=== PATIENT | female | born 1975 | race Caucasian/White ===

== ENCOUNTER 2017-03-05 17:39 | Observation (INO) | payer OTHER ==
--- NOTE | 2017-03-05 17:55 | PDOC ---
History of Present Illness - History of Present Illness Initial Comments: 41 year old healthy female with history of 2 NSVDs and a cholecystectomy presenting with 5 hours of diffuse achy abdominal pain and some BRBPR. She states that it started suddenly after lunch and describes it as a 4/10-8/10 jules -umbilical pain that is causing her some nausea and loss of appetite. She states this pain started after lunch and she is afraid to eat food because of potential exacerbation of her symptoms. She is on OCP (LUPIN- estrogen containing). Denies vomiting, chest pain, shortness of breath, palpitations, cough, or blood from any orifice. 03/05/17 21:32 <Jacinto Tirado - Last Filed: 03/06/17 00:46> <Vj Interiano - Last Filed: 03/06/17 17:58> - General Chief Complaint: Rectal Bleed Stated Complaint: PAIN Time Seen by Provider: 03/05/17 17:55 Past History - Suicide/Smoking/Psychosocial Hx Smoking History: Never smoked Have you smoked in the past 12 months: No Information on smoking cessation initiated: No Hx Alcohol Use: No Drug/Substance Use Hx: No Substance Use Type: None <Jacinto Tirado - Last Filed: 03/06/17 00:46> <Vj Interiano - Last Filed: 03/06/17 17:58> - Past Medical History Allergies/Adverse Reactions: Allergies Allergy/AdvReac Type Severity Reaction Status Date / Time No Known Allergies Allergy Verified 03/05/17 17:42 Home Medications: Ambulatory Orders Desogestrel-Ethinyl Estradiol [Enskyce] 1 each PO DAILY 03/05/17 Review of Systems - Review of Systems Constitutional: No: Chills, Fever HEENTM: No: Blurred Vision Respiratory: No: Cough, Shortness of Breath, Wheezing, Productive cough Cardiac (ROS): No: Chest Pain, Lightheadedness, Palpitations, Syncope, Chest Tightness ABD/GI: Yes: Nausea. No: Diarrhea, Vomiting : No: Burning, Dysuria, Hematuria Integumentary: No: Change in Color Neurological: No: Headache, Numbness Hematologic/Lymphatic: No: Blood Clots, Easy Bleeding <Jacinto Tirado - Last Filed: 03/06/17 00:46> *Physical Exam - Vital Signs Last Vital Signs Temp Pulse Resp BP Pulse Ox 98.1 F 115 H 20 130/90 100 03/05/17 17:42 03/05/17 17:42 03/05/17 17:42 03/05/17 17:42 03/05/17 17:42 - Physical Exam General Appearance: Yes: Nourished, Appropriately Dressed. No: Apparent Distress HEENT: positive: EOMI, RUI, Normal ENT Inspection, Normal Voice Neck: positive: Trachea midline, Normal Thyroid, Supple. negative: Tender, Rigid Respiratory/Chest: positive: Lungs Clear, Normal Breath Sounds. negative: Chest Tender, Respiratory Distress Cardiovascular: positive: Regular Rhythm, Regular Rate Gastrointestinal/Abdominal: positive: Normal Bowel Sounds, Tender (Diffuse abdominal tenderness most prominent in the left lower quadrant. However, as obivous in the attending note, this pain is dynamic.), Flat, Soft Musculoskeletal: positive: Normal Inspection. negative: CVA Tenderness Extremity: positive: Normal Capillary Refill, Normal Inspection, Normal Range of Motion. negative: Tender Integumentary: positive: Normal Color, Dry, Warm Neurologic: positive: Fully Oriented, Alert, Normal Mood/Affect, Normal Response , Motor Strength 5/5 <Jacinto Tirado - Last Filed: 03/06/17 00:46> - Vital Signs Last Vital Signs Temp Pulse Resp BP Pulse Ox 98.4 F 100 H 18 133/78 98 03/06/17 15:23 03/06/17 15:23 03/06/17 13:12 03/06/17 15:23 03/06/17 15:23 <Vj Interiano - Last Filed: 03/06/17 17:58> ED Treatment Course - LABORATORY CBC & Chemistry Diagram: 03/05/17 18:20 03/05/17 18:20 <Jacinto Tirado - Last Filed: 03/06/17 00:46> - LABORATORY CBC & Chemistry Diagram: 03/06/17 02:00 03/06/17 02:00 - ADDITIONAL ORDERS Additional order review: 03/06/17 03/05/17 02:00 18:20 RBC 4.17 4.62 MCV 84.6 83.6 MCHC 33.4 33.6 RDW 13.1 13.1 MPV 7.7 8.0 Neutrophils % 85.9 H D 69.5 Lymphocytes % 10.3 D 25.3 Monocytes % 3.5 L 3.4 L Eosinophils % 0.0 D 1.0 Basophils % 0.3 0.8 - Medications Given in the ED: ED Medications Discontinued Medications Generic Name Dose Route Start Last Admin Trade Name Wes PRN Reason Stop Dose Admin Al Hydroxide/Mg Hydroxide 30 ml 03/05/17 21:24 03/05/17 21:45 Mylanta Oral Suspension - PO 03/05/17 21:25 30 ml ONCE ONE Administration Hydromorphone HCl 1 mg 03/05/17 18:58 03/05/17 18:59 Dilaudid Injection - IVPUSH 03/05/17 18:59 1 mg NOW ONE Administration Famotidine/Sodium Chloride 50 mls @ 100 mls/hr 03/05/17 21:41 03/05/17 21:54 Pepcid 20 Mg Premixed Ivpb - IVPB 03/05/17 22:10 100 mls/hr ONCE ONE Administration Sodium Chloride 1,000 mls @ 75 mls/hr 03/06/17 03:45 03/06/17 04:00 Normal Saline - IV 03/06/17 17:04 75 mls/hr ASDIR KIAN Administration Lidocaine HCl 20 ml 03/05/17 21:24 03/05/17 21:45 Xylocaine 2% Viscous Oral - MM 03/05/17 21:25 20 ml ONCE ONE Administration Morphine Sulfate 4 mg 03/05/17 18:24 03/05/17 18:49 Morphine Injection - IVPUSH 03/05/17 18:25 4 mg ONCE ONE Administration Sodium Chloride 1,000 ml 03/05/17 18:59 03/05/17 18:59 Normal Saline - IV 03/05/17 19:00 1,000 ml NOW ONE Administration Sodium Chloride 1,000 ml 03/05/17 22:25 03/05/17 22:33 Normal Saline - IV 03/05/17 22:26 1,000 ml ONCE ONE Administration <Vj Interiano - Last Filed: 03/06/17 17:58> Medical Decision Making - Medical Decision Making 41 year old female with abdominal pain of unclear location. History of cholecystectomy. Rectal exam significant for possible internal hemorrhoid, no BRBPR and fecal occult blood negative. Abdominal CT negative for stones with normal appendix but note of a 11 x 7 x 8 CM Dermoid cyst in the pelvis. Spoke to OBGYN attending front desk team member and discussed the case with her. She indicated that we should rule out torsion and can have her follow up in the records management assistant clinic for elective cyst removal. However, she was still Tachycardic despite two liters of NS so concerned for PE. Discussed patients with front desk team member medical residents and they will observe her and scan her for PE tomorrow. 03/06/17 00:50 <Jacinto Tirado - Last Filed: 03/06/17 00:46> *DC/Admit/Observation/Transfer - Discharge Dispostion Admit: Yes <Jacinto Tirado - Last Filed: 03/06/17 00:46> <Vj Interiano - Last Filed: 03/06/17 17:58> Diagnosis at time of Disposition: Abdominal pain Qualifiers: Abdominal location: generalized Qualified Code(s): R10.84 - Generalized abdominal pain - Discharge Dispostion Condition at time of disposition: Stable - Referrals - Patient Instructions
[2017-03-05] MEDS ORDERED: morphine CARPU-JECT 2 MG/1 ML DISP.SYRIN IVPUSH ONE (18:24)
[2017-03-05] MEDS ORDERED: morphine CARPU-JECT 8 MG/1 ML DISP.SYRIN ONE (18:28)
[2017-03-05 18:32] LABS: BASOPHIL 0.8 % (0-2.0); MCHC 33.6 g/dl (32.0-36.0); MEAN CELL VOLUME 83.6 fl (80-96); NEUTROPHILS 69.5 % (42.8-82.8); PLATELET COUNT 290 K/MM3 (134-434); RDW 13.1 % (11.6-15.6); WHITE BLOOD COUNT 14.3 K/mm3 (4.0-10.0)
[2017-03-05 18:43] LABS: STOOL FOR OCCULT BLOOD NEGATIVE (NEGATIVE)
[2017-03-05 18:45] LABS: INR 0.98 (0.82-1.09); PROTHROMBIN TIME (PATIENT) 11.1 SEC (9.98-11.88)
[2017-03-05] MEDS ORDERED: HYDROmorphone HCL CARPU-JECT 1 MG/1 ML DISP.SYRIN ONE (18:54)
[2017-03-05] MEDS ORDERED: HYDROmorphone HCL CARPU-JECT 1 MG/1 ML DISP.SYRIN IVPUSH ONE (18:58)
[2017-03-05 18:59] LABS: ALBUMIN 3.2 g/dl (3.4-5.0); ALK PHOS 97 U/L (45-117); ANION GAP 7 (8-16); BILIRUBIN,TOTAL 0.1 mg/dL (0.2-1.0); CALCIUM 8.7 mg/dL (8.5-10.1); CO2 25 mmol/L (21-32); CREATININE 0.7 mg/dL (0.55-1.02); GLUCOSE,RANDOM 140 mg/dL (74-106); SGOT/AST 19 U/L (15-37); SGPT/ALT 30 U/L (12-78); TOT PROT 7.6 g/dl (6.4-8.2)
[2017-03-05] MEDS ORDERED: SODIUM CHLORIDE 0.9% 1000 ML INFUS.BAG IV ONE (18:59)
--- NOTE | 2017-03-05 20:28 | PDOC ---
Attending Attestation - Resident Resident Name: Jacinto Tirado - ED Attending Attestation I have performed the following: I have examined & evaluated the patient, The case was reviewed & discussed with the resident, I agree w/resident's findings & plan, Exceptions are as noted - HPI HPI: 03/05/17 20:25 41 Years old no significant past medical history presents to the emergency department with right-sided abdominal discomfort starting this afternoon. Pain is moderate to severe persistent constant gradually worsening over the course of day. Also of note patient noticed a small amount of bright red blood when wiping - Physicial Exam PE: 03/05/17 20:26 Vitals: Triage Vital signs reviewed General Appearance: Moderate acute distress, well nourished well developed, Chest Wall: Nontender Cardiac: Regular rate and rhythym, no murmurs, no rubs, no gallops, Lungs: Clear to auscultation bilateral, good air movement bilaterally, Abdomen: Soft, non distended, normal bowel sounds, right-sided abdominal tenderness to palpation both in the right upper quadrant or right lower quadrant Extremities: Full range of motion to all extremities, no cyanosis, clubbing, or edema Skin: Warm and dry, no rashes or lesions, no rash, no petechiae - Medical Decision Making 03/05/17 20:26 Right-sided abdominal discomfort differential diagnosis includes biliary disease versus appendectomy. CAT scan ordered patient may also require ultrasound Dr. Cueto to follow-up results.
[2017-03-05] MEDS ORDERED: MAG HYDROX/AL HYDROX/SIMETH 30 ML UNIT-DOSE CUP PO ONE (21:24)
[2017-03-05] MEDS ORDERED: LIDOCAINE VISCOUS 2% ORAL/TOP 20 ML UNIT-DOSE CUP MM ONE (21:24)
[2017-03-05] MEDS ORDERED: LIDOCAINE VISCOUS 2% ORAL/TOP 20 ML UNIT-DOSE CUP ONE (21:27)
[2017-03-05] MEDS ORDERED: FAMOTIDINE 20 MG/50 ML IVPB 50 ML IVPB ONE ×2 (21:41→21:47)
[2017-03-05 22:16] LABS: URINE APPEARANCE SLCLOUDY; URINE BILIRUBIN NEGATIVE (NEGATIVE); URINE BLOOD 1+ (NEGATIVE); URINE COLOR LTYELLOW; URINE GLUCOSE (UA) NEGATIVE (NEGATIVE); URINE KETONE TRACE (NEGATIVE); URINE NITRITE NEGATIVE (NEGATIVE); URINE PROTEIN NEGATIVE (NEGATIVE); URINE UROBILINOGEN NEGATIVE mg/dL (0.2-1.0)
[2017-03-05 22:18] LABS: URINE MUCUS RARE; URINE RBC 2 /hpf (0-3); URINE WBC 1 /hpf (3-5)
[2017-03-05] MEDS ORDERED: SODIUM CHLORIDE 0.9% 500 ML INFUS.BAG IV ONE (22:25)
[2017-03-05 23:32] LABS: URINE LEUK ESTERASE Negative (NEGATIVE)
--- NOTE | 2017-03-06 01:07 | HP ---
CHIEF COMPLAINT: Abdominal Pain HISTORY OF PRESENT ILLNESS: Pt is a 41yo F with a PMHx of PCOS, s/p CCY, who presented to ER of sudden onset epigastric discomfort. States she noticed it this afternoon after eating food, it started off mild and slowly progressed. It is characterized as dull, achey, sometimes diffuse, w/ associated fullness. Denies nausea, vomitting, diarrhea, constipation, heartburn. Denies CP, SOB. Also noticed that today she had smears of bright red blood per rectum, was not straining, no assoc pain. Denies anal pain, itchiness. Denies fevers, chills. Given Morphine, Dilaudid, Tylenol, viscous lidocaine in ER, thus currently pain is more resolved. ER course was notable for: (1) VSS, EKG shows sinus tach w/ Q3, T3 (2) Abd/pelvis CT - unable to get [facility] read, stomach looks enlarged w/ food , dermoid cyst (3) Pelvic U/S - R adnexal complex mass (6.5cm) + L adnexal cyst (1.3cm) PAST MEDICAL HISTORY: PCOS (taking Estradiol) PAST SURGICAL HISTORY: Laparoscopic CCY +14 years ago Social History: Lives w/ , from [place] Smoking: Denies Alcohol: Denies Drugs: Denies Allergies: No Known Allergies Allergy (Verified 03/05/17 17:42) HOME MEDICATIONS: Home Medications Medication Instructions Recorded Desogestrel-Ethinyl Estradiol 1 each PO DAILY 03/05/17 [Enskyce] REVIEW OF SYSTEMS CONSTITUTIONAL: Absent: fever, chills, diaphoresis, generalized weakness, malaise, loss of appetite, weight change HEENT: Absent: rhinorrhea, nasal congestion, throat pain, throat swelling, difficulty swallowing, mouth swelling, ear pain, eye pain, visual changes CARDIOVASCULAR: Absent: chest pain, syncope, palpitations, irregular heart rate, lightheadedness , peripheral edema RESPIRATORY: Absent: cough, shortness of breath, dyspnea with exertion, orthopnea, wheezing, stridor, hemoptysis GASTROINTESTINAL: Absent: abdominal distension, nausea, vomiting, diarrhea, constipation, melena, hematochezia Present: abdominal pain GENITOURINARY: Absent: dysuria, frequency, urgency, hesitancy, hematuria, flank pain, genital pain MUSCULOSKELETAL: Absent: myalgia, arthralgia, joint swelling, back pain, neck pain SKIN: Absent: rash, itching, pallor HEMATOLOGIC/IMMUNOLOGIC: Absent: easy bleeding, easy bruising, lymphadenopathy, frequent infections ENDOCRINE: Absent: unexplained weight gain, unexplained weight loss, heat intolerance, cold intolerance NEUROLOGIC: Absent: headache, focal weakness or paresthesias, dizziness, unsteady gait, seizure, mental status changes, bladder or bowel incontinence PSYCHIATRIC: Absent: anxiety, depression, suicidal or homicidal ideation, hallucinations. PHYSICAL EXAMINATION Vital Signs Temperature 98 F 03/05/17 22:23 Pulse Rate 127 H 03/05/17 23:58 Respiratory Rate 16 03/05/17 23:58 Blood Pressure 151/70 03/05/17 23:58 O2 Sat by Pulse Oximetry (%) 98 03/05/17 23:58 GEN: AAOx3, NAD, Lying comfortably, spaeking in full sentences HEENT: PERRLA, EOMi, no cervical LAD CV: S1, S2, tachycardic rate, reg rhythm LUNG: CTABL ABD: obese, soft, mild TTP in epigastrium and suprapubic area MSK: No edema, no erythema RECTAL: SMall external hemorrhoids, nonbleeding NEURO: No sensation or MSK deficits Laboratory Last Values WBC 14.3 K/mm3 (4.0-10.0) H 03/05/17 18:20 RBC 4.62 M/mm3 (3.60-5.2) 03/05/17 18:20 Hgb 13.0 GM/dL (10.7-15.3) 03/05/17 18:20 Hct 38.6 % (32.4-45.2) 03/05/17 18:20 MCV 83.6 fl (80-96) 03/05/17 18:20 MCH 28.0 pg (25.7-33.7) 03/05/17 18:20 MCHC 33.6 g/dl (32.0-36.0) 03/05/17 18:20 RDW 13.1 % (11.6-15.6) 03/05/17 18:20 Plt Count 290 K/MM3 (134-434) 03/05/17 18:20 MPV 8.0 fl (7.5-11.1) 03/05/17 18:20 Neutrophils % 69.5 % (42.8-82.8) 03/05/17 18:20 Lymphocytes % 25.3 % (8-40) 03/05/17 18:20 Monocytes % 3.4 % (3.8-10.2) L 03/05/17 18:20 Eosinophils % 1.0 % (0-4.5) 03/05/17 18:20 Basophils % 0.8 % (0-2.0) 03/05/17 18:20 PT with INR 11.10 SEC (9.98-11.88) 03/05/17 18:20 INR 0.98 (0.82-1.09) 03/05/17 18:20 Sodium 138 mmol/L (136-145) 03/05/17 18:20 Potassium 3.8 mmol/L (3.5-5.1) 03/05/17 18:20 Chloride 106 mmol/L (98-107) 03/05/17 18:20 Carbon Dioxide 25 mmol/L (21-32) 03/05/17 18:20 Anion Gap 7 (8-16) L 03/05/17 18:20 BUN 12 mg/dL (7-18) 03/05/17 18:20 Creatinine 0.7 mg/dL (0.55-1.02) 03/05/17 18:20 Creat Clearance w eGFR > 60 (>60) 03/05/17 18:20 Random Glucose 140 mg/dL (74-106) H 03/05/17 18:20 Calcium 8.7 mg/dL (8.5-10.1) 03/05/17 18:20 Total Bilirubin 0.1 mg/dL (0.2-1.0) L 03/05/17 18:20 AST 19 U/L (15-37) 03/05/17 18:20 ALT 30 U/L (12-78) 03/05/17 18:20 Alkaline Phosphatase 97 U/L (45-117) 03/05/17 18:20 Total Protein 7.6 g/dl (6.4-8.2) 03/05/17 18:20 Albumin 3.2 g/dl (3.4-5.0) L 03/05/17 18:20 Lipase 180 U/L (73-393) 03/05/17 18:20 Serum , Qual Negative 03/05/17 18:24 Urine Color Ltyellow 03/05/17 22:00 Urine Appearance Slcloudy 03/05/17 22:00 Urine pH 5.0 (5.0-8.0) 03/05/17 22:00 Ur Specific [place] 1.010 (1.005-1.025) 03/05/17 22:00 Urine Protein Negative (NEGATIVE) 03/05/17 22:00 Urine Glucose (UA) Negative (NEGATIVE) 03/05/17 22:00 Urine Ketones Trace (NEGATIVE) H 03/05/17 22:00 Urine Blood 1+ (NEGATIVE) H 03/05/17 22:00 Urine Nitrite Negative (NEGATIVE) 03/05/17 22:00 Urine Bilirubin Negative (NEGATIVE) 03/05/17 22:00 Urine Urobilinogen Negative mg/dL (0.2-1.0) 03/05/17 22:00 Ur Leukocyte Esterase Negative (NEGATIVE) 03/05/17 22:00 Urine RBC 2 /hpf (0-3) 03/05/17 22:00 Urine WBC 1 /hpf (3-5) 03/05/17 22:00 Ur Epithelial Cells Moderate /hpf (FEW) 03/05/17 22:00 Urine Mucus Rare 03/05/17 22:00 Stool Occult Blood Negative (NEGATIVE) 03/05/17 18:24 Blood Type A POSITIVE 03/05/17 18:20 Antibody Screen Negative 03/05/17 18:20 Active Medications Generic Name Dose Route Start Last Admin Trade Name Isaiahq PRN Reason Stop Dose Admin Acetaminophen 650 mg 03/06/17 01:02 03/06/17 02:20 Tylenol - PO 650 mg Q4H PRN Administration FEVER OR PAIN Enoxaparin Sodium 100 mg 03/06/17 10:00 Lovenox - SQ BID KIAN Metronidazole 100 mls @ 100 mls/hr 03/06/17 09:00 Flagyl 500mg Premixed Ivpb - IVPB Q6H-IV KIAN Levofloxacin 150 mls @ 150 mls/hr 03/06/17 10:00 Levaquin 750 Mg Premixed Ivpb - IVPB DAILY KIAN Sodium Chloride 1,000 mls @ 75 mls/hr 03/06/17 03:45 03/06/17 04:00 Normal Saline - IV 03/06/17 17:04 75 mls/hr ASDIR KIAN Administration Pantoprazole Sodium 40 mg 03/06/17 10:00 Protonix - PO DAILY KIAN ASSESSMENT/PLAN: Pt is a 41yo F with a PMHx of PCOS, s/p CCY, who presented to ER of gradual onset epigastric and suprapubic discomfort and fullness. # Epigastric Pain - along w/ WBC count and left shift could be intra-abdominal infection vs dyspepsia vs gastritis, less likely or pancreatitis or [place], Tylenol for pain, f/u official CT abd/pelvis read, will give Levaquin/Flagyl to cover possible infection, will give protonix to cover possible gastritis # Tachycardia - from pain vs r/o PE since pt is on estrogen w/ Q3, T3 on EKG, high-dimer, will give Lovenox 1mg/kg BID tx dose for PE in the interim, will get BLLE dopplers, unable to get CTA <24hrs after CT abd/pelvis w/ contrast. Will give gentle IVF to prevent contrast induced kidney injury # R Ovarian Dermoid Cyst - 6-7cm, from PCOS and/or estrogen pills, likely causing suprapubic discomfort, will consult OBGYN (Dr. Zhao) # External Hemorrhoids - small, nonbleeding oma, but could have lead to minimal BRBPR, monitor for now # PCOS - hold estrogen pills for now # FEN - No IVF, electrolytes WNL, regular diet # PPx - Lovenox, PT not needed, pt is ambulatory # Dispo - Admit to inpatient, getting IV abx and therapeutic anticoag d/w Dr. Andria Lewis MD - PGY1 Internal Medicine Visit type - Emergency Visit Emergency Visit: Yes ED Registration Date: 03/06/17 Care time: The patient presented to the Emergency Department on the above date and was hospitalized for further evaluation of their emergent condition. - New Patient This patient is new to me today: Yes Date on this admission: 03/06/17 - Critical Care Critical Care patient: No
[2017-03-06 02:04] LABS: BASOPHIL 0.3 % (0-2.0); MCH 28.2 pg (25.7-33.7); MCHC 33.4 g/dl (32.0-36.0); MEAN CELL VOLUME 84.6 fl (80-96); MEAN PLT VOLUME 7.7 fl (7.5-11.1); NEUTROPHILS 85.9 % (42.8-82.8); PLATELET COUNT 265 K/MM3 (134-434); RDW 13.1 % (11.6-15.6)
[2017-03-06] MEDS ORDERED: ACETAMINOPHEN 325 MG TABLET (FP) ONE (02:16)
[2017-03-06] MEDS: ACETAMINOPHEN 325 MG TABLET (FP) PO PRN (02:20)
[2017-03-06 03:00] LABS: ALBUMIN 2.9 g/dl (3.4-5.0); ALK PHOS 87 U/L (45-117); ANION GAP 9 (8-16); BILIRUBIN,TOTAL 0.3 mg/dL (0.2-1.0); CALCIUM 8.2 mg/dL (8.5-10.1); CO2 21 mmol/L (21-32); CREATININE 0.7 mg/dL (0.55-1.02); GLUCOSE,RANDOM 134 mg/dL (74-106); SGOT/AST 20 U/L (15-37); SGPT/ALT 25 U/L (12-78); TOT PROT 6.6 g/dl (6.4-8.2)
[2017-03-06] MEDS ORDERED: SODIUM CHLORIDE 1,000 ML IV SCH ×2 (03:45→19:00)
--- NOTE | 2017-03-06 03:54 | PN ---
Teaching Attending Note Name of Resident: Paul Lewis ATTENDING PHYSICIAN STATEMENT I saw and evaluated the patient. I reviewed the resident's note and discussed the case with the resident. I agree with the resident's findings and plan as documented. SUBJECTIVE: 41yo woman with PCOS diagnosed by hormone studies this past October comes in complaining of suprapubic and epigastric abdominal pain x1 day. Pain started abruptly and was not related to any particular event. Denied any trauma, fevers , chills, shortness of breath. CT of abdomen was performed and showed large pelvic dermoid cyst. There was no obvious rupture seen. Patient found to have tachycardia, q3, t3 on ekg, high Dimer. She is denied any difficulty w/ breathing. OBJECTIVE: Last Vital Signs Temp Pulse Resp BP Pulse Ox 99.1 F 120 H 16 123/78 97 03/06/17 02:20 03/06/17 02:54 03/06/17 02:54 03/06/17 02:54 03/06/17 02:54 general- nad, aaox3 heent -at, nc neck -supple cv-s1+s2+ tachycardia chest- cta b/l abdomen- mild tenderness in suprapubic and epigastric regions ext -no edema skin- no rashes noted Abnormal Lab Results 03/05/17 03/05/17 03/05/17 18:20 18:20 22:00 WBC 14.3 H Neutrophils % Monocytes % 3.4 L D-Dimer Chloride Anion Gap 7 L Random Glucose 140 H Calcium Total Bilirubin 0.1 L Albumin 3.2 L Urine Ketones Trace H Urine Blood 1+ H 03/06/17 03/06/17 03/06/17 02:00 02:00 02:00 WBC 15.0 H Neutrophils % 85.9 H D Monocytes % 3.5 L D-Dimer 924 H Chloride 108 H Anion Gap Random Glucose 134 H Calcium 8.2 L Total Bilirubin Albumin 2.9 L Urine Ketones Urine Blood ct of abdomen - large dermoid cyst ASSESSMENT AND PLAN: #abdominal pain -likely 2/2 to mass effect from large dermoid cyst with concerns of possible rupture as there is tachycardia, leukocytosis with left shift. Concern for early sepsis. Pain may also be 2/2 gastritis as it is also localized in epigastric region. -blood cultures x2 -pain control w/ morphine prn -IV fluid hydration -levofloxacin -metronidazole -OBGYN evaluation for management of dermoid cyst -PPIs empirically for possible gastritis #R/o PE - q3, t3 on ekg, tachycardia, +D dimer-, taking OCPs suggest moderate possibility of PE -admit to telemetry -start therapeutic dose of Lovenox pending CT of chest with contrast -duplex of lower extremity to r/o DVT -transthoracic echo to check for right heart strain #DVT ppx -therapeutic dose lovenox #diet -normal diet
[2017-03-06] MEDS ORDERED: HEPARIN NA (PORCINE) 5,000 UNITS/ML 1ML VIAL SQ SCH (06:00)
--- NOTE | 2017-03-06 09:05 | EKG ---
Test Reason : Blood Pressure : / mmHG Vent. Rate : 121 BPM Atrial Rate : 121 BPM P-R Int : 158 ms QRS Dur : 072 ms QT Int : 308 ms P-R-T Axes : 034 021 004 degrees QTc Int : 437 ms POOR DATA QUALITY, INTERPRETATION MAY BE ADVERSELY AFFECTED SINUS TACHYCARDIA CANNOT RULE OUT INFERIOR INFARCT , AGE UNDETERMINED ABNORMAL ECG NO PREVIOUS ECGS AVAILABLE Confirmed by JAN WINSTON, BOZENA ([id number]) on 03/06/2017 9:04:44 AM Referred By: Confirmed By:BOZENA MONTOYA MD
[2017-03-06] MEDS ORDERED: METRONIDAZOLE 500 MG PREMIXED 100 ML IVPB ONE ×2 (10:35→15:11)
[2017-03-06] MEDS ORDERED: LEVOFLOXACIN 750 MG IVPB 150 ML IVPB ONE (10:35)
[2017-03-06] MEDS: METRONIDAZOLE 500 MG PREMIXED 100 ML IVPB SCH ×3 (10:40→21:24)
[2017-03-06] MEDS: PANTOPRAZOLE 40 MG TABLET (FP) PO SCH (10:45)
[2017-03-06] MEDS: ENOXAPARIN NA (PORCINE) 100 MG/1 ML DISP.SYRIN SQ SCH ×2 (10:45→21:25)
[2017-03-06] MEDS: LEVOFLOXACIN 750 MG IVPB 150 ML IVPB SCH (12:35)
[2017-03-06 13:22] VITALS: BMI 36.7
[2017-03-06] MEDS ORDERED: morphine CARPU-JECT 8 MG/1 ML DISP.SYRIN IVPUSH PRN (15:10)
[2017-03-06] MEDS ORDERED: morphine CARPU-JECT 8 MG/1 ML DISP.SYRIN ONE (15:11)
[2017-03-06] MEDS ORDERED: SODIUM CHLORIDE 1,000 ML IV STA (17:07)
--- NOTE | 2017-03-06 17:07 | PN ---
Teaching Attending Note Name of Resident: Franck March (eval:[id number]) ATTENDING PHYSICIAN STATEMENT SUBJECTIVE: patient seen and examined. Reported infraumbilical and epigastric pain on admission, markedly improved. Infra umbilical pain has resolved, describes it as sudden onset squeezing in nature, no epigastric pain currently. Denies any dyspnea, chest pain, palpitations, dizziness or diaphoresis, no nausea, vomiting noted. OBJECTIVE: Vital Signs Period Temp Pulse Resp BP Sys/Rojas Pulse Ox Last 24 Hr 98 F-99.1 F 103-135 16-20 114-151/66-90 97-100 Intake & Output 03/03/17 03/04/17 03/05/17 03/06/17 23:59 23:59 23:59 23:59 Weight 214 lb 214 lb General: sitting comfortably in wheelchair, no acute distress, no use of acessory muscles of respiration CVS S1S2 regular, borderline tachycardic Chest CTAB, no rales or wheezing abdomen soft, obese, no intraumbilical tenderness or mass elicited on exam, minimal epigastric tenderness, no voluntary or involuntary guarding or rigidity , positive bowel sounds extremities no edema, positive pulses bilaterally Current Medications Acetaminophen (Tylenol -) 650 mg PO Q4H PRN PRN Reason: FEVER OR PAIN Last Admin: 03/06/17 02:20 Dose: 650 mg Enoxaparin Sodium (Lovenox -) 100 mg SQ BID ON LICENSE OF [facility] Last Admin: 03/06/17 10:45 Dose: 100 mg Metronidazole (Flagyl 500mg Premixed Ivpb -) 100 mls @ 100 mls/hr IVPB Q6H-IV ON LICENSE OF [facility] Last Admin: 03/06/17 15:20 Dose: 100 mls/hr Levofloxacin (Levaquin 750 Mg Premixed Ivpb -) 150 mls @ 150 mls/hr IVPB DAILY ON LICENSE OF [facility] Last Admin: 03/06/17 12:35 Dose: 150 mls/hr Morphine Sulfate (Morphine Sulfate) 2 mg IVPUSH Q4H PRN PRN Reason: PAIN Last Admin: 03/06/17 15:20 Dose: 2 mg Pantoprazole Sodium (Protonix -) 40 mg PO DAILY ON LICENSE OF [facility] Last Admin: 03/06/17 10:45 Dose: 40 mg ASSESSMENT AND PLAN: 41 yof with epigastric and infraumbilical pain, 2 discrete nature, found with sinus tachycardia that failed to resolve with hydration, leucocytosis. -Epigastric tenderness, mild - non concerning abdominal exam and CT A/P, ?gastritis vs PUD vs dyspepsia. Protonix, outpatient GI follow up if symptoms improve and tolerating po well. -Infraumbilical pain resolved, reports twisting pain on admission. ?dermoid cyst torsion with self- resolution. CT A/P non concerning. Gynecology consulted from ED, will follow up recs. Will need outpatient follow up for the same. Serial abdominal exams. Empiric levaquin/flagyl day 1 given concerning symptoms and leucocytosis on admission, d/c in 24 hours if improved with no new concerns. -Sinus tachycardia ?Pain/abdominal symptoms. Patient noted with Q3/T3 on EKG, with elevated D-dimer and h/o OCPs. However no respiratory symptoms or hypoxia. Currently on empiric full dose lovenox as unable to get repeat CT with contrast within [address] PE for tonight. Aggressive hydration with total 2L IVF bolus and gentle hydration NS at 100 ml/hr overnight. D/c lovenox if CT PE neg. -Dermoid cyst Transvaginal US noted. Outpatient Scientific Specialist follow up if no recurrent abdominal concerns. -BRBPR one episode prior to admission, none inhouse. On lovenox, with no new bleed or concerns, monitor closely. -Dispo - anticipate in [address] PE and abdominal symptoms improved. PLan discussed with patient and family at bedside in detail, all questions answered.
[2017-03-06] MEDS: SODIUM CHLORIDE 1,000 ML IV SCH (21:24)
[2017-03-07] MEDS: METRONIDAZOLE 500 MG PREMIXED 100 ML IVPB SCH ×2 (03:38→09:13)
[2017-03-07 06:54] LABS: INR 1.19 (0.82-1.09); PROTHROMBIN TIME (PATIENT) 13.5 SEC (9.98-11.88)
[2017-03-07 06:55] LABS: BASOPHIL 0.2 % (0-2.0); EOSINOPHIL 2.3 % (0-4.5); MEAN CELL VOLUME 85.3 fl (80-96); MEAN PLT VOLUME 8.1 fl (7.5-11.1); NEUTROPHILS 59.2 % (42.8-82.8); PLATELET COUNT 233 K/MM3 (134-434); WHITE BLOOD COUNT 8.3 K/mm3 (4.0-10.0)
[2017-03-07 07:01] LABS: ALBUMIN 2.6 g/dl (3.4-5.0); ANION GAP 9 (8-16); CALCIUM 7.8 mg/dL (8.5-10.1); CO2 22 mmol/L (21-32); GLUCOSE,RANDOM 79 mg/dL (74-106)
[2017-03-07 07:07] LABS: ALK PHOS 81 U/L (45-117); BILIRUBIN,TOTAL 0.6 mg/dL (0.2-1.0); CREATININE 0.5 mg/dL (0.55-1.02); SGOT/AST 12 U/L (15-37); SGPT/ALT 20 U/L (12-78); TOT PROT 6.3 g/dl (6.4-8.2)
[2017-03-07 08:33] LABS: THYROID STIMULATING HORMONE 7.64 uIU/ml (0.358-3.74)
[2017-03-07] MEDS: LEVOFLOXACIN 750 MG IVPB 150 ML IVPB SCH (09:13)
[2017-03-07] MEDS: PANTOPRAZOLE 40 MG TABLET (FP) PO SCH (09:13)
[2017-03-07] MEDS: SODIUM CHLORIDE 1,000 ML IV SCH (09:13)
[2017-03-07] MEDS: ACETAMINOPHEN 325 MG TABLET (FP) PO PRN (09:51)
--- NOTE | 2017-03-07 13:10 | PN ---
Teaching Attending Note Name of Resident: Paul Lewis ATTENDING PHYSICIAN STATEMENT Time of evaluation: 11:00 AM I saw and evaluated the patient. I reviewed the resident's note and discussed the case with the resident. I agree with the resident's findings and plan as documented. SUBJECTIVE: Patient seen and examined. Denies any nausea, vomiting, abdominal pain, diarrhea , chest pain, palpitations, dyspnea, or dizziness. Tolerating diet well. OBJECTIVE: Vital Signs Period Temp Pulse Resp BP Sys/Rojas Pulse Ox Last 24 Hr 97.8 F-98.4 F 82-103 18-20 106-134/67-92 97-100 Intake & Output 03/04/17 03/05/17 03/06/17 03/07/17 23:59 23:59 23:59 23:59 Intake Total 100 900 Balance 100 900 Weight 214 lb 214 lb General: sitting at edge of bed in no acute distress CVS S1S2 regular chest CTAB, no rales or wheezing abdomen soft, obese, non tender throughout, positive bowel sounds, no voluntary or involuntary guarding or rigidity Extremities - no edema Current Medications Acetaminophen (Tylenol -) 650 mg PO Q4H PRN PRN Reason: FEVER OR PAIN Last Admin: 03/07/17 09:51 Dose: 650 mg Metronidazole (Flagyl 500mg Premixed Ivpb -) 100 mls @ 100 mls/hr IVPB Q6H-IV KIAN Last Admin: 03/07/17 09:13 Dose: 100 mls/hr Levofloxacin (Levaquin 750 Mg Premixed Ivpb -) 150 mls @ 150 mls/hr IVPB DAILY KIAN Last Admin: 03/07/17 09:13 Dose: 150 mls/hr Sodium Chloride (Normal Saline -) 1,000 mls @ 1,000 mls/hr IV ASDIR KIAN Sodium Chloride (Normal Saline -) 1,000 mls @ 100 mls/hr IV ASDIR KIAN Last Admin: 03/07/17 09:13 Dose: 100 mls/hr Morphine Sulfate (Morphine Sulfate) 2 mg IVPUSH Q4H PRN PRN Reason: PAIN Last Admin: 03/06/17 15:20 Dose: 2 mg Pantoprazole Sodium (Protonix -) 40 mg PO DAILY KIAN Last Admin: 03/07/17 09:13 Dose: 40 mg Laboratory Results - last 24 hr 1003/07/17 03/07/17 06:10 06:10 06:10 WBC 8.3 D RBC 3.70 Hgb 10.7 Hct 31.6 L MCV 85.3 MCH 29.0 MCHC 34.0 RDW 13.0 Plt Count 233 MPV 8.1 Neutrophils % 59.2 D Lymphocytes % 32.9 D Monocytes % 5.4 Eosinophils % 2.3 D Basophils % 0.2 PT with INR 13.50 H INR 1.19 H Sodium 140 Potassium 3.8 Chloride 109 H Carbon Dioxide 22 Anion Gap 9 BUN 7 D Creatinine 0.5 L D Creat Clearance w eGFR > 60 Random Glucose 79 D Calcium 7.8 L Total Bilirubin 0.6 D AST 12 L D ALT 20 Alkaline Phosphatase 81 Total Protein 6.3 L Albumin 2.6 L TSH 7.64 H 03/07/17 06:10 WBC RBC Hgb Hct MCV MCH MCHC RDW Plt Count MPV Neutrophils % Lymphocytes % Monocytes % Eosinophils % Basophils % PT with INR INR Sodium Potassium Chloride Carbon Dioxide Anion Gap BUN Creatinine Creat Clearance w eGFR Random Glucose Calcium Total Bilirubin AST ALT Alkaline Phosphatase Total Protein Albumin TSH Cancelled CT Chest neg for PE, no acute process ASSESSMENT AND PLAN: 41 yof with epigastric and infraumbilical pain, 2 discrete nature, found with sinus tachycardia that failed to resolve with hydration, leucocytosis. -Epigastric tenderness, mild - non concerning abdominal exam and CT A/P, ?gastritis vs PUD vs dyspepsia. Resolved. Protonix, outpatient GI follow up -Infraumbilical pain resolved, reports twisting pain on admission. ?dermoid cyst torsion with self- resolution. CT A/P non concerning. Currently asymptomatic, outpatient gynecology follow up d/c levaquin/flagyl. -Sinus tachycardia ?Pain/abdominal symptoms. resolved, CT PE neg, TSH noted, will need outpatient T3 and T4 and follow up with PCP, heart rate already normalized. -Dermoid cyst Transvaginal US noted. Outpatient Simplex Operator follow up -[facility] no concerns. -Dispo - D/c home today on PPI with outpatient thyroid workup, GI and gynecology follow up. Current findings and need for thyroid, GI and gynecology followup discussed in detaill with patient, patient relays understanding and agrees to follow up. Also informed of risk of torsion with dermoid cyst and to come to ED or call 911 if sudden severe belly pain noted.
[2017-03-07 14:38] VITALS: BP 128/72; PULSE 85; TEMP 98.2
--- NOTE | 2017-03-07 17:57 | DS ---
Physical Exam: SUBJECTIVE: Patient seen and examined. Epigastric and suprapubic pain resolved completely. No fevers, no chills, no CP, no SOB. OBJECTIVE: Vital Signs Period Temp Pulse Resp BP Sys/Rojas Pulse Ox Last 24 Hr 97.8 F-98.4 F 82-98 18-20 106-134/67-92 97-100 PHYSICAL EXAM GEN: AAOx3, NAD, Lying comfortably, speaking in full sentences HEENT: PERRLA, EOMi, no cervical LAD CV: S1, S2, tachycardic rate, reg rhythm LUNG: CTABL ABD: obese, soft, no tenderness MSK: No edema, no erythema RECTAL: Small external hemorrhoids, nonbleeding NEURO: No sensation or MSK deficits LABS Laboratory Last Values WBC 8.3 K/mm3 (4.0-10.0) D 03/07/17 06:10 RBC 3.70 M/mm3 (3.60-5.2) 03/07/17 06:10 Hgb 10.7 GM/dL (10.7-15.3) 03/07/17 06:10 Hct 31.6 % (32.4-45.2) L 03/07/17 06:10 MCV 85.3 fl (80-96) 03/07/17 06:10 MCH 29.0 pg (25.7-33.7) 03/07/17 06:10 MCHC 34.0 g/dl (32.0-36.0) 03/07/17 06:10 RDW 13.0 % (11.6-15.6) 03/07/17 06:10 Plt Count 233 K/MM3 (134-434) 03/07/17 06:10 MPV 8.1 fl (7.5-11.1) 03/07/17 06:10 Neutrophils % 59.2 % (42.8-82.8) D 03/07/17 06:10 Lymphocytes % 32.9 % (8-40) D 03/07/17 06:10 Monocytes % 5.4 % (3.8-10.2) 03/07/17 06:10 Eosinophils % 2.3 % (0-4.5) D 03/07/17 06:10 Basophils % 0.2 % (0-2.0) 03/07/17 06:10 PT with INR 13.50 SEC (9.98-11.88) H 03/07/17 06:10 INR 1.19 (0.82-1.09) H 03/07/17 06:10 D-Dimer 924 ng/ml (<200-235) H 03/06/17 02:00 Sodium 140 mmol/L (136-145) 03/07/17 06:10 Potassium 3.8 mmol/L (3.5-5.1) 03/07/17 06:10 Chloride 109 mmol/L (98-107) H 03/07/17 06:10 Carbon Dioxide 22 mmol/L (21-32) 03/07/17 06:10 Anion Gap 9 (8-16) 03/07/17 06:10 BUN 7 mg/dL (7-18) D 03/07/17 06:10 Creatinine 0.5 mg/dL (0.55-1.02) L D 03/07/17 06:10 Creat Clearance w eGFR > 60 (>60) 03/07/17 06:10 Random Glucose 79 mg/dL (74-106) D 03/07/17 06:10 Calcium 7.8 mg/dL (8.5-10.1) L 03/07/17 06:10 Total Bilirubin 0.6 mg/dL (0.2-1.0) D 03/07/17 06:10 AST 12 U/L (15-37) L D 03/07/17 06:10 ALT 20 U/L (12-78) 03/07/17 06:10 Alkaline Phosphatase 81 U/L (45-117) 03/07/17 06:10 Total Protein 6.3 g/dl (6.4-8.2) L 03/07/17 06:10 Albumin 2.6 g/dl (3.4-5.0) L 03/07/17 06:10 Lipase 180 U/L (73-393) 03/05/17 18:20 TSH 7.64 uIU/ml (0.358-3.74) H 03/07/17 06:10 Serum , Qual Negative 03/05/17 18:24 Urine Color Ltyellow 03/05/17 22:00 Urine Appearance Slcloudy 03/05/17 22:00 Urine pH 5.0 (5.0-8.0) 03/05/17 22:00 Ur Specific [place] 1.010 (1.005-1.025) 03/05/17 22:00 Urine Protein Negative (NEGATIVE) 03/05/17 22:00 Urine Glucose (UA) Negative (NEGATIVE) 03/05/17 22:00 Urine Ketones Trace (NEGATIVE) H 03/05/17 22:00 Urine Blood 1+ (NEGATIVE) H 03/05/17 22:00 Urine Nitrite Negative (NEGATIVE) 03/05/17 22:00 Urine Bilirubin Negative (NEGATIVE) 03/05/17 22:00 Urine Urobilinogen Negative mg/dL (0.2-1.0) 03/05/17 22:00 Ur Leukocyte Esterase Negative (NEGATIVE) 03/05/17 22:00 Urine RBC 2 /hpf (0-3) 03/05/17 22:00 Urine WBC 1 /hpf (3-5) 03/05/17 22:00 Ur Epithelial Cells Moderate /hpf (FEW) 03/05/17 22:00 Urine Mucus Rare 03/05/17 22:00 Stool Occult Blood Negative (NEGATIVE) 03/05/17 18:24 Blood Type A POSITIVE 03/05/17 18:20 Antibody Screen Negative 03/05/17 18:20 HOSPITAL COURSE: Date of Admission:03/06/17 Date of Discharge: 03/07/17 Briefly, Ms Theodore is a 41yo F with a PMHx of PCOS, s/p CCY, who presented to ER of sudden onset epigastric discomfort. States she noticed it this afternoon after eating food, it started off mild and slowly progressed. It is characterized as dull, achey, sometimes diffuse, w/ associated fullness. Denies nausea, vomiting, diarrhea, constipation, heartburn. She denies chest pain, shortness of breath. After IV pain medications in the ER, she improved. We started her on protonix, which improved her symptoms. She was placed on IV antibiotics for leukocytosis, which resolved before discharge. In the ER, imaging noted a large right ovarian dermoid cyst (6-7cm) which was causing her suprapubic discomfort. The discomfort eventually resolved, and we told the patient to followup with an OBGYN physician. She was noted to be tachycardic in the ER and found to have Q1T3 on EKG with high d-dimer. She was started on Lovenox full treatment dose, until CTA revealed no PE. Her tachycardia resolved , and patient's symptoms ultimately resolved, and she tolerated her diet well. She will be discharged home on Protonix, and will followup with GI. Patient was made aware of the hospital course and agrees with the plan to be discharged home. Minutes to complete discharge: 45 Discharge Summary Reason For Visit: PAIN Condition: Stable - Instructions Diet, Activity, Other Instructions: RECOMMENDATIONS - We did a CT scan of your stomach which did not show any infection or stones. - We believe that your pain may be due to some irritation of your stomach lining, possibly due to an ulcer. - You should avoid spicy foods and use over the counter Tums and Maalox to help with the abdominal pain. - We did a CT scan of your chest which showed no blood clots in your pulmonary arteries -You CT scan also showed a huge dermoid cyst. PLease note that the cyst has risk for twisting, if any sudden severe belly pain, please call 911 or come to ED immediately. -Your Thyroid test TSH was noted elevated at 7.54, and you will need additional blood work with T3/T4 and testing with your doctor in 1 week. -Continue acid medication protonix for 2-3 days, then take as once daily as needed for acid reflux symptoms. Also discuss with your doctor about outpatient Gastroenterology follow up for possible EGD and testing. NEW MEDICATIONS: - Protonix 40mg PO daily FOLLOWUPS: - Dr. Vincent (Straw Hat Washer Operator) - to evaluate your stomach pain - Primary Care Doctor - please obtain a referral for an Obstetric- Senior Science Consultant to evaluate your dermoid cyst. Also followup about your thyroid hormones, to obtain T3/T4 Please return to the ED if you have abdominal pain that does not get better with the medications or you have worsening nausea, vomiting, diarrhea, or inability to eat and food or liquids. Referrals: Danny Vincent DO [Staff Physician] - Disposition: HOME - Home Medications Comprehensive Discharge Medication List: Ambulatory Orders Desogestrel-Ethinyl Estradiol [Enskyce 28 Tablet] 1 each PO DAILY 03/05/17 Pantoprazole Sodium [Protonix -] 40 mg PO DAILY #30 tablet.ec 03/07/17 This patient is new to me today: No Emergency Visit: No Critical Care patient: No - Discharge Referral Referred to [facility] No
== END 2017-03-07 16:41 | disposition home or self-care (01) ==
LOC: JER 17:39 → UNDOADMOB 03-06 00:43 → JERBED 03-06 00:43 → J4W 03-06 21:18
PROVIDERS: ADMIT Internal Medicine; ATTEND Hospitalist
PROC: 3E033GC Introduction of Other Therapeutic Substance into Peripheral Vein, Percutaneous Approach (ICD-10-PCS; principal; 2017-03-06)
PROC: 3E033NZ Introduction of Analgesics, Hypnotics, Sedatives into Peripheral Vein, Percutaneous Approach (ICD-10-PCS; 2017-03-06)
PROC: 3E0337Z Introduction of Electrolytic and Water Balance Substance into Peripheral Vein, Percutaneous Approach (ICD-10-PCS; 2017-03-06)
PROC: 3E013GC Introduction of Other Therapeutic Substance into Subcutaneous Tissue, Percutaneous Approach (ICD-10-PCS; 2017-03-06)
DX: R10.84 Generalized abdominal pain (principal); E28.2 Polycystic ovarian syndrome; R00.0 Tachycardia, unspecified; K64.4 Residual hemorrhoidal skin tags; R10.13 Epigastric pain; D36.7 Benign neoplasm of other specified sites
CPT/HCPCS: 36415; 71275-TC; 74177-TC; 76830-TC; 80053; 81003; 81015; 82272; 83690; 84443; 84703; 85025; 85379; 85610; 86850; 86900; 86901; 87040; 87086; 93005; 93010; 93306-TC; 93970-TC; 96361; 96365; 96372; 96375; 96376; 99285-25; G0378; Q9967